=== PATIENT | male | born 2005 | race Two or more races ===

== ENCOUNTER 2025-09-29 11:39 | Emergency (ER) | payer MEDICAID, OTHER ==
[~2025-09-29] VITALS: Ht 185.4 cm; Wt 88.2 kg
[2025-09-29 11:40] VITALS: BP 157/99; PULSE 71; RESP 18; TEMP 97.4; O2SAT 99
[2025-09-29] MEDS ORDERED: CEPH500C PO (12:32)
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
== END 2025-09-29 13:06 | disposition home or self-care (01) ==
LOC: ER 11:39
DX: S16.1XXA Strain of muscle, fascia and tendon at neck level, initial encounter (principal); S46.912A Strain of unspecified muscle, fascia and tendon at shoulder and upper arm level, left arm, initial encounter; S80.212A Abrasion, left knee, initial encounter; Z79.899 Other long term (current) drug therapy; V89.2XXA Person injured in unspecified motor-vehicle accident, traffic, initial encounter; Y93.89 Activity, other specified; Y92.488 Other paved roadways as the place of occurrence of the external cause; Y99.8 Other external cause status

== ENCOUNTER 2025-11-25 15:27 | Emergency (ER) | payer SELFPAY ==
[~2025-11-25 15:27] MED LIST: CEPH500C PO
== END 2025-11-25 15:28 | disposition left against medical advice (07) ==
LOC: ER 15:27
DX: Z48.00 Encounter for change or removal of nonsurgical wound dressing (principal); Z53.21 Procedure and treatment not carried out due to patient leaving prior to being seen by health care provider